=== PATIENT | female | born 1995 | race Two or more races ===

== ENCOUNTER 2024-02-22 11:02 | Outpatient (CLI) | payer OTHER | END 2024-02-22 11:09 | disposition home or self-care (01) | LOC: PRENATAL 11:02 | PROVIDERS: ATTEND Obstetrics & Gynecology Maternal & Fetal Medicine | DX: O36.80X0 Pregnancy with inconclusive fetal viability, not applicable or unspecified (principal); Z36.82 Encounter for antenatal screening for nuchal translucency; O28.3 Abnormal ultrasonic finding on antenatal screening of mother; Z3A.13 13 weeks gestation of pregnancy ==

== ENCOUNTER 2024-03-20 18:40 | Emergency (ER) | payer OTHER ==
[~2024-03-20] VITALS: Ht 162.6 cm; Wt 63.5 kg
[2024-03-20] MEDS ORDERED: KETOROLAC TROMETHAMINE 30 MG VIAL IV STA (20:52)
[2024-03-20] MEDS ORDERED: OxyCODONE HCL/APAP UD (PERCOCET) PO STA (20:53)
[2024-03-20] MEDS ORDERED: CIPROFLOXACIN IN 5 % DEXTROSE 400 MG/200 ML PIGGYBAG IV STA (20:53)
[2024-03-20] MEDS ORDERED: CIPROFLOXACIN IN 5 % DEXTROSE 400 MG/200 ML PIGGYBAG IV ONE (21:10)
[2024-03-20] MEDS ORDERED: KETOROLAC TROMETHAMINE 30 MG VIAL ONE (21:10)
[2024-03-20 22:00] LABS: PH,URINE 6.5 (5.0-8.0); URINE APPEARANCE Clear; URINE BILIRRUBIN Negative (NEGATIVE); URINE BLOOD Negative; URINE COLOR Yellow; URINE GLUCOSE Negative (NEGATIVE); URINE KETONE Trace (NEGATIVE); URINE LEUKOCYTE Small; URINE NITRATE Negative; URINE PROTEIN 30 (NEGATIVE)
[2024-03-20 22:04] LABS: URINE BACTERIA 224.2 uL (0.0-1933); URINE CAST 0.45 uL (0.0-1.40); URINE EPITHELIAL CELLS 58.1 uL (0.0-38.8); URINE RBC 10.5 uL (0.0-20.8); URINE WBC 45.6 uL (0.0-23.2)
== END 2024-03-20 22:27 | disposition home or self-care (01) ==
LOC: ER 18:42
DX: O23.12 Infections of bladder in pregnancy, second trimester (principal); Z3A.17 17 weeks gestation of pregnancy

== ENCOUNTER 2024-03-21 09:52 | Inpatient (IN) | payer OTHER ==
[2024-03-19 12:56] LABS: URINE APPEARANCE Clear; URINE BILIRRUBIN Negative (NEGATIVE); URINE BLOOD Negative; URINE COLOR Yellow; URINE GLUCOSE Negative (NEGATIVE); URINE KETONE 15 (NEGATIVE); URINE LEUKOCYTE Moderate; URINE NITRATE Negative; URINE PROTEIN Negative (NEGATIVE)
[2024-03-19 12:59] LABS: URINE BACTERIA 759.7 uL (0.0-1933); URINE EPITHELIAL CELLS 25.9 uL (0.0-38.8); URINE WBC 43.7 uL (0.0-23.2)
[2024-03-19 13:02] LABS: URINE CAST 0.15 uL (0.0-1.40)
[2024-03-19 13:05] LABS: HEMATOCRIT 33.5 % (36.0-45.00); MEAN CELL VOLUME 88.6 fL (80.00-100.00); MEAN CORPUSCULAR HEMOGLOBIN 29.2 pg (27.00-32.0); MEAN CORPUSCULAR HGB CONC 32.9 g/dl (32.0-36.0); PLATELET COUNT 250 K/uL (150-450); RED BLOOD COUNT 3.78 M/uL (4.00-6.00); RED CELL DISTRIBUTION WIDTH 14.6 % (11.5-14.5)
[2024-03-19 13:20] LABS: INR 0.99; PARTIAL THROMBOPLASTIN TIME 26.9 SECONDS (22.0-34.0); PROTHROMBIN TIME 10.8 SECONDS (9.0-11.5)
[2024-03-19 14:09] LABS: ALBUMIN 3.5 gm/dL (3.4-5.0); BILIRUBIN TOTAL 0.37 mg/dL (0.3-1.2); CALCIUM 8.8 mg/dL (8.5-10.1); CREATININE SERUM 0.51 mg/dL (0.55-1.02); GFR 141.59; GLOBULINA 3.7 G/DL (2.4-3.5); POTASSIUM 3.81 mEq/L (3.5-5.1); TOTAL PROTEIN 7.2 gm/dL (6.4-8.2)
[2024-03-19 14:12] LABS: TSH 0.425 uIU/mL (0.358-3.74)
[~2024-03-21] VITALS: Ht 162.6 cm; Wt 139.7 kg
[2024-03-21] MEDS ORDERED: CEFOXITIN SODIUM 2,000 MG VIAL IV ONE (10:55)
[2024-03-21] MEDS ORDERED: POVIDONE-IODINE 118 ML BOTT TOP ONE (12:42)
[2024-03-21] MEDS ORDERED: CEFOXITIN SODIUM 1,000 MG VIAL IV SCH ×2 (14:21→21:00)
[2024-03-21] MEDS ORDERED: NAPROXEN 500 MG TABLET PO SCH ×2 (14:21→17:00)
[2024-03-21] MEDS ORDERED: METHYLERGONOVINE MALEATE 0.2 MG TABLET PO SCH ×2 (14:22→18:00)
[2024-03-21] MEDS ORDERED: METHYLERGONOVINE MALEATE 0.2 MG/ML AMPUL IM STA (14:22)
[2024-03-21] MEDS ORDERED: MORPHINE SULFATE 4 MG/ML VIAL IV PRN (14:30)
[2024-03-21] MEDS ORDERED: RINGERS SOLUTION,LACTATED 1,000 ML IV SCH (14:30)
[2024-03-21] MEDS ORDERED: METHYLERGONOVINE MALEATE 0.2 MG/ML AMPUL ONE (15:07)
[2024-03-21] MEDS ORDERED: ONDANSETRON HCL 2 MG/ML VIAL ONE (15:43)
[2024-03-21] MEDS ORDERED: MORPHINE SULFATE 4 MG/ML CARTRIDGE IV PRN (15:45)
[2024-03-21 19:58] LABS: HEMATOCRIT 27.1 % (36.0-45.00); HEMOGLOBIN 9.1 g/dL (12.0-15.00); MEAN CORPUSCULAR HEMOGLOBIN 30.1 pg (27.00-32.0); MEAN CORPUSCULAR HGB CONC 33.8 g/dl (32.0-36.0); PLATELET COUNT 180 K/uL (150-450); RED BLOOD COUNT 3.04 M/uL (4.00-6.00); RED CELL DISTRIBUTION WIDTH 14.2 % (11.5-14.5)
[2024-03-21 23:19] VITALS: BP 105/63
[2024-03-22 00:59] VITALS: BP 98/70; O2SAT 98
[2024-03-22 08:00] VITALS: BP 91/55; O2SAT 18
[2024-03-22] MEDS ORDERED: MORGIDOX100 MG PO (09:25)
[2024-03-22] MEDS ORDERED: MAXFE CAPLET1 EAC1 PO (09:25)
[2024-03-22] MEDS ORDERED: Methergine PO (09:27)
[2024-03-22] MEDS ORDERED: NAPR500T14 PO (09:29)
== END 2024-03-22 13:15 | disposition home or self-care (01) | DRG 779 ==
LOC: CIR.AMB 09:52 → O/R 14:43 → SURH 15:15
PROVIDERS: ADMIT Obstetrics & Gynecology; ATTEND Obstetrics & Gynecology
PROC: 10D17Z9 Manual Extraction of Products of Conception, Retained, Via Natural or Artificial Opening (ICD-10-PCS; principal; 2024-03-21 14:00)
DX: O02.1 Missed abortion (principal); O35.06X0 Maternal care for (suspected) central nervous system malformation or damage in fetus, hydrocephaly, not applicable or unspecified; Z3A.17 17 weeks gestation of pregnancy; Z20.822 Contact with and (suspected) exposure to COVID-19